=== PATIENT | female | born 1980 | race Caucasian/White ===

== ENCOUNTER 2017-05-31 23:54 | Emergency (ER) | payer OTHER ==
[~2017-05-31] VITALS: Ht 172.7 cm; Wt 77.1 kg
[2017-06-01] MEDS ORDERED: TRAZODONE HCL100 MG PO (00:06)
[2017-06-01] MEDS ORDERED: ZOLOFT100 MG PO (00:06)
[2017-06-01] MEDS ORDERED: ALPRAZOLAM2 MG PO (00:07)
[2017-06-01] MEDS ORDERED: CLARITIN10 MG PO (00:07)
[2017-06-01] MEDS ORDERED: NORCO 10-325 T1 EACH PO (00:08)
[2017-06-01] MEDS ORDERED: IBUPROFEN600 MG PO (00:08)
== END 2017-06-01 01:38 | disposition home or self-care (01) ==
LOC: ED 23:54
DX: F15.129 Other stimulant abuse with intoxication, unspecified (principal); F11.10 Opioid abuse, uncomplicated; F31.9 Bipolar disorder, unspecified; F17.200 Nicotine dependence, unspecified, uncomplicated; Z88.0 Allergy status to penicillin; Z79.899 Other long term (current) drug therapy
CPT/HCPCS: 80053; 80176; 81001; 84703; 85025; 99283; G0480

== ENCOUNTER 2019-10-29 00:12 | Emergency (ER) | payer SELFPAY ==
[~2019-10-29] VITALS: Ht 172.7 cm; Wt 77.1 kg
[~2019-10-29 00:12] MED LIST: ALPRAZOLAM2 MG PO; CLARITIN10 MG PO; IBUPROFEN600 MG PO; NORCO 10-325 T1 EACH PO; TRAZODONE HCL100 MG PO; ZOLOFT100 MG PO
--- OUTSIDE RECORDS SUMMARY | 2019-10-29 00:14 | XMS ---
PreManage Notification: KAL FRAZIER Security Manager Float Events No recent Security Events currently on file CRITERIA MET - [facility] - 2 Visits in 30 Days CARE PROVIDERS ADRIEL COE Primary Care [facility] PHONE: Unknown GARY COLLADO Primary Care [facility] [place] PHONE: Unknown Jah Toney - Case or Hearing Aide Technician [facility] PHONE: [phone] Jhonny has no Care Guidelines for this patient. E.D. VISIT COUNT (12 MO.) 2 [facility] [address] [facility] TOTAL 3 NOTE: Visits indicate total known visits. ED/UCC VISIT TRACKING (12 MO.) 10/29/2019 00:12 [facility] [place] TYPE: Emergency COMPLAINT: - OVERDOSE 10/28/2019 21:27 [facility] [place] TYPE: Emergency DIAGNOSES: - Other psychoactive substance abuse, uncomplicated - GENERAL MEDICAL 02/06/2019 10:27 [facility] [place] TYPE: Emergency DIAGNOSES: - FALL LOWER BACK AND HIP PAIN - Contusion of lower back and pelvis, initial encounter INPATIENT VISIT TRACKING (12 MO.) No inpatient visits to display in this time frame [email or web address]
== END 2019-10-29 05:18 | disposition home or self-care (01) ==
LOC: ED 00:12
DX: T40.2X1A Poisoning by other opioids, accidental (unintentional), initial encounter (principal); F19.10 Other psychoactive substance abuse, uncomplicated; Z88.0 Allergy status to penicillin; Z79.899 Other long term (current) drug therapy
CPT/HCPCS: 36415; 80053; 80176; 81001; 84443; 84703; 85025; 99284; G0480